=== PATIENT | female | born 1995 | race Caucasian/White ===

== ENCOUNTER 2017-08-10 22:36 | Emergency (ER) | payer SELFPAY, OTHER ==
[2017-08-11] MEDS: LIDOCAINE/MYLANTA 40 ML BTL PO (01:22)
== END 2017-08-11 02:44 | disposition home or self-care (01) ==
LOC: FTE 22:36
DX: R07.89 Other chest pain (principal)
CPT/HCPCS: 71045; 93005; 99284-25